=== PATIENT | male | born 1955 | race Caucasian/White ===

== ENCOUNTER 2020-01-03 05:27 | Inpatient (IN) | payer MEDICARE, OTHER ==
[2019-12-27 11:24] LABS: BASOPHILS % (AUTO) 0.7 % (0-1); EOSINOPHILS # (AUTO) 0.3 X10'3 (0-0.9); EOSINOPHILS % (AUTO) 3.9 % (0-6); LYMPHOCYTES # (AUTO) 1.5 X10'3 (1.1-4.8); LYMPHOCYTES % (AUTO) 20.8 % (21-51); MEAN CORPUSCULAR HEMOGLOBIN 29.3 PG (27.0-31.0); MEAN CORPUSCULAR HGB CONC 33.4 g/dL (33.0-36.5); MEAN CORPUSCULAR VOLUME 87.8 FL (78-98); MEAN PLATELET VOLUME 7.1 FL (7.4-10.4); MONOCYTES # (AUTO) 0.6 X10'3 (0-0.9); MONOCYTES % (AUTO) 8.2 % (2-12); NEUTROPHILS # (AUTO) 4.8 X10'3 (1.8-7.7); NEUTROPHILS % (AUTO) 66.4 % (42-75); PRE OP HEMATOCRIT 45.8 % (42.0-52.0); PRE OP HEMOGLOBIN 15.3 g/dL (14.0-17.9); PRE OP PLATELET COUNT 261 X10'3 (140-440); RED BLOOD COUNT 5.22 X10'6 (4.70-6.10); RED CELL DISTRIBUTION WIDTH 14.1 % (11.5-14.5)
[2019-12-27 11:37] LABS: PRE OP PROTIME 10.3 SECONDS (9.0-12.0)
[2019-12-27 11:42] LABS: ALBUMIN 4.3 G/DL (3.4-5.0); ALBUMIN/GLOBULIN RATIO 1.2 (1.1-1.5); ALKALINE PHOSPHATASE 71 IU/L (46-116); BLOOD UREA NITROGEN 9 MG/DL (7-18); BUN/CREATININE RATIO 9.4 (5.4-32.0); CALCIUM 9.1 MG/DL (8.5-10.1); CHLORIDE 100 MMOL/L (99-107); CREATININE 0.96 MG/DL (0.60-1.10); PRE OP ALT 26 U/L (30-65); PRE OP ANION GAP 5 (8-16); PRE OP AST 26 U/L (10-37); PRE OP BILIRUB, TOTAL 0.7 MG/DL (0.0-1.0); PRE OP GLUCOSE 106 MG/DL (70-104); PRE OP POTASSIUM 4.5 MMOL/L (3.4-5.1); PRE OP SODIUM 137 MMOL/L (135-145); TOTAL CARBON DIOXIDE 31.9 MMOL/L (24-32); TOTAL PROTEIN 7.9 G/DL (6.4-8.2); eGFR 79 ML/MIN
[~2020-01-03] VITALS: Ht 175.3 cm; Wt 92.7 kg
[2020-01-03] VITALS (19 sets, daily range): BP systolic 111–181; BP diastolic 64–98
[~2020-01-03 05:27] MED LIST: ASCO-294 PO; ASPI81TA52 PO; ATOR10TA70 PO; OXYB15TA19 PO; PROTANDIM PO; SILD20TA2 PO; VITA15LO2 PO; VITA1TAB57 PO; [UNRECOGNIZED DRUG - OTHER] PO; ringers solution, lacted 1,000 ML IV SCH
[2020-01-03] MEDS ORDERED: famotidine 10mg tablet PO ONE (05:30)
[2020-01-03] MEDS ORDERED: ceFAZolin 2gm in dextrose, iso 50 ML IV ONE (06:00)
[2020-01-03 06:51] LABS: PRE OP INR 1.1 INR
[2020-01-03] MEDS ORDERED: BUPIVAcaine/PF 2.5 mg/ml (0.25%) 30ml vial ONE (07:18)
[2020-01-03] MEDS ORDERED: fentaNYL /PF 50mcg/ml 5ml ampule ONE (07:27)
[2020-01-03] MEDS ORDERED: propofol inj 20 ML IV ONE (07:27)
[2020-01-03] MEDS ORDERED: MIDAZolam 5mg/5ml vial ONE (07:27)
[2020-01-03] MEDS ORDERED: rocuronium 10mg/ml inj IV ONE (07:28)
[2020-01-03] MEDS ORDERED: morphine 2 MG/ML inj. syringe IV PRN (09:05)
[2020-01-03] MEDS ORDERED: proCHLORperazine 10 MG/2 ml inj IV PRN (09:05)
[2020-01-03] MEDS ORDERED: ringers solution, lacted 1,000 ML IV SCH ×2 (09:05→17:15)
[2020-01-03] MEDS ORDERED: meperidine/PF 25mg/ml syringe IV PRN ×3 (09:05→17:15)
[2020-01-03] MEDS ORDERED: ondansetron/PF 4mg/2ml inj IV PRN ×3 (09:05→17:15)
[2020-01-03] MEDS ORDERED: morphine 4 MG/ML inj SYRINge IV PRN (09:05)
[2020-01-03] MEDS ORDERED: ceFAZolin 1000mg inj ONE (11:56)
[2020-01-03] MEDS ORDERED: ondansetron/PF 4mg/2ml inj ONE (13:22)
[2020-01-03] MEDS ORDERED: dexamethasone sod phosphate 4mg/ml inj. ONE (13:22)
[2020-01-03] MEDS ORDERED: HYDROcodone/acetaminophen 10/325mg tab PO PRN (13:40)
[2020-01-03] MEDS ORDERED: neostigmine methylsulfate 1 MG/ML 10ml vial ONE (13:45)
[2020-01-03] MEDS ORDERED: glycopyrrolate 0.2mg/ml inj ONE (13:45)
--- NOTE | 2020-01-03 13:50 | NUR ---
Received from OR via BED, accompanied by Anesthesiologist DR GTZ and report given by Anesthesiolgist . PATIENT A&OX4, DENIES PAIN, V/S WNL, NEUROVASCULAR CHECKS INTACT, 20G PIV LUE AND 16G RUE, SCD ON, REDISH COLORED URINE IN F/C BAG. 3 ABDOMEN DRESSING CDI WITH 1 TIGRE DRAIN WITH MINIMAL OUTPUT SO FAR.
[2020-01-03] MEDS: meperidine/PF 25mg/ml syringe IV PRN ×2 (14:08→14:25)
--- NOTE | 2020-01-03 14:40 | NUR ---
PATIENT A&OX4, DENIES PAIN, V/S WNL, NEUROVASCULAR CHECKS INTACT, 20G PIV LUE AND 16G RUE, SCD ON, REDISH COLORED URINE IN F/C BAG. 3 ABDOMEN DRESSING CDI WITH 1 TIGRE DRAIN WITH MINIMAL OUTPUT SO FAR. PATIENT TAKEN TO SURGICAL WITH ALL BELONGINGS AND HOOKED UP TO MONITORS IN ROOM AND REPORT GIVEN TO RN WHO HAS TAKEN OVER PATIENT CARE.
--- NOTE | 2020-01-03 14:55 | NUR ---
Received patient to room 348B via bed accompanied by KRIS SPARKS. Patient alert and oriented with c/o abd pain. X3 lap sites with bandaids to ABD CDI, TIGRE to left lower abd with minimal serous sanguinous output. Brooks catheter with hematuria draining to gravity. Oriented patient to room and call light. Bed low and locked. Call light plaved within reach.
[2020-01-03] MEDS: HYDROmorphone 1 mg/ml syringe IV PRN ×2 (15:20→21:35)
[2020-01-03] MEDS ORDERED: HYDROmorphone inj. 0.5 MG/0.5 ML DISP.SYRIN IV PRN ×2 (17:15)
[2020-01-03] MEDS: oxybutynin 5mg tablet PO SCH (21:33)
[2020-01-04] MEDS: HYDROcodone/acetaminophen 10/325mg tab PO PRN ×2 (00:35→07:50)
[2020-01-04] MEDS: HYDROmorphone 1 mg/ml syringe IV PRN (03:18)
[2020-01-04 04:00] VITALS: BP 116/69
[2020-01-04 05:33] LABS: BASOPHILS % (AUTO) 0.1 % (0-1); EOSINOPHILS % (AUTO) 0 % (0-6); HEMATOCRIT 37.9 % (42.0-52.0); HEMOGLOBIN 12.9 g/dl (14.0-17.9); LYMPHOCYTES % (AUTO) 6.9 % (21-51); MEAN CORPUSCULAR HEMOGLOBIN 29.6 PG (27.0-31.0); MEAN CORPUSCULAR VOLUME 87.3 FL (78-98); MEAN PLATELET VOLUME 7.3 FL (7.4-10.4); MONOCYTES # (AUTO) 1.4 X10'3 (0-0.9); MONOCYTES % (AUTO) 9.4 % (2-12); NEUTROPHILS # (AUTO) 12.3 X10'3 (1.8-7.7); NEUTROPHILS % (AUTO) 83.6 % (42-75); PLATELET COUNT 259 X10'3 (140-440); RED BLOOD COUNT 4.34 X10'6 (4.70-6.10); RED CELL DISTRIBUTION WIDTH 13.7 % (11.5-14.5); WHITE BLOOD COUNT 14.7 X10'3 (4.5-11.0)
[2020-01-04 06:30] LABS: ALBUMIN 3.3 G/DL (3.4-5.0); ANION GAP 8 (8-16); BLOOD UREA NITROGEN 16 MG/DL (7-18); BUN/CREATININE RATIO 15.8 (5.4-32.0); CALCIUM 8.1 MG/DL (8.5-10.1); CHLORIDE 100 MMOL/L (99-107); CREATININE 1.01 MG/DL (0.60-1.10); GLUCOSE 122 MG/DL (70-104); POTASSIUM 4.3 MMOL/L (3.5-5.1); SODIUM 135 MMOL/L (135-145); TOTAL CARBON DIOXIDE 27.4 MMOL/L (24-32); eGFR 74 ML/MIN
--- NOTE | 2020-01-04 06:42 | NUR ---
Patient in room [facility]. I have received report from KRIS Camacho and had the opportunity to ask questions and assume patient care.
[2020-01-04] MEDS: oxybutynin 5mg tablet PO SCH ×2 (07:46→13:00)
[2020-01-04 08:00] VITALS: BP 123/74
[2020-01-04] MEDS ORDERED: DOCU-148 PO (10:53)
[2020-01-04] MEDS ORDERED: HYDR-4353 PO (10:53)
[2020-01-04 12:00] VITALS: BP 122/74
--- NOTE | 2020-01-04 13:18 | NUR ---
pt d/c education was completed with pt at bedside. pt education on wound care, infection prevention, management of soto cathether and use of incentive spirometer. Pt was told to go to ER if he experience deterioration in his condition and to follow up with Dr. Carrasco. [facility]. Pt, TIGRE tube was D/C and dressing was applied. both PIV were D/C. Pt tolerated well. Patient was educated on medications to take and medications to discontinued per MD orders.
--- NOTE | 2020-01-04 13:54 | NUR ---
Pt escorted to front lobby via wheelchair by PCT, with all belongings.
--- NOTE | 2020-01-04 14:30 | NUR ---
Received phone call from pt's , Rocio, upset regarding lack of pain medication administered to pt prior to discharge. Pt stating pain was 5-6/10 after getting downstairs, however did not request pain medication prior to being escorted downstairs via wheelchair. general claims agent notified of 's concern. Attempted to pull pain medication from [facility] but was unable to D/T pt being already discharged from [facility]. general claims agent went to front lobby to speak with pt's regarding inability to pull pain medication and apologize. It was suggested by general claims agent to fill written prescription at local 24 hour [facility]. Pt's , Rocio, agreeable to suggestion.
[2020-01-05] MEDS ORDERED: docusate sod 250mg capsule PO SCH (08:00)
== END 2020-01-04 14:04 | disposition home or self-care (01) | DRG 708 ==
LOC: PAS 05:27 → SUR 3N 13:36 → PAS 01-04 14:04
PROVIDERS: ADMIT Urology; ATTEND Urology
PROC: 8E0W4CZ Robotic Assisted Procedure of Trunk Region, Percutaneous Endoscopic Approach (ICD-10-PCS; 2020-01-03)
PROC: 0VT04ZZ Resection of Prostate, Percutaneous Endoscopic Approach (ICD-10-PCS; principal; 2020-01-03 07:27)
DX: C61 Malignant neoplasm of prostate (principal); R97.21 Rising PSA following treatment for malignant neoplasm of prostate; Z20.828 Contact with and (suspected) exposure to other viral communicable diseases; Z79.899 Other long term (current) drug therapy; Z79.01 Long term (current) use of anticoagulants; Z96.641 Presence of right artificial hip joint; Z98.890 Other specified postprocedural states; Z87.891 Personal history of nicotine dependence; Z86.19 Personal history of other infectious and parasitic diseases; Z88.5 Allergy status to narcotic agent
CPT/HCPCS: 36415; 55866; 71046; 80048; 80053; 82948; 85025; 85610; 85730; 86885; 86900; 86901; 87635; 93005; J0690; J1100; J1170; J2175; J2250; J2405; J2704; J2710; J3010; J3490; J7120; 88305; 88309; A4215; A4338; A4357; A4618; A6449; A7000; G0378